=== PATIENT | female | born 2000 | race Caucasian/White ===

== ENCOUNTER 2025-03-22 10:04 | Inpatient (IN) | payer OTHER ==
[~2025-03-22] VITALS: Ht 180.3 cm; Wt 93.4 kg
[2025-03-22] MEDS ORDERED: Aluminum Hydroxide 320MG/5ML 473 ML PO PRN (15:00)
[2025-03-22] MEDS ORDERED: Ondansetron 4 MG SoluTab MM PRN (15:00)
[2025-03-22] MEDS ORDERED: LORazepam 2 MG/ML 1ML Injection IM PRN (15:00)
[2025-03-22] MEDS ORDERED: Polyethylene Glycol 3350 17 gm PO PRN (15:05)
[2025-03-22] MEDS ORDERED: DiphenhydrAMINE HCl 50 MG/ML 1ML Vial IM PRN (15:05)
[2025-03-22] MEDS ORDERED: FLU VACC TS2025-26(6MOS UP)/PF 45 MCG/0.5 ML SYRINGE IM SCH (15:10)
[2025-03-22] MEDS ORDERED: Haloperidol Lactate Inj. 5 MG/ML Injection IM PRN (15:10)
[2025-03-22 15:23] VITALS: BP 134/79
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
--- NOTE | 2025-03-22 16:23 | NUR ---
PROVIDER INFORMATION MIKE, THERAPIST AT [facility] IN [facility] [phone] PCP MAGDA PINZON IS AT [facility] [phone]
[2025-03-22 19:00] VITALS: BP 148/100
--- NOTE | 2025-03-23 04:38 | NUR ---
SHIFT SUMMARY 25 YEAR-OLD FEMALE PRESENTS WELL GROOMED. SHE IS ALERT AND ORIENTED. SHE SPEAKS IN A CLEAR VOICE AND IN AN APPROPRIATE VOLUME. SHE IS ABLE TO MAKE AND KEEP EYE CONTACT DURING CONVERSATIONS. AT THE TIME OF HER ASSESSMENT, SHE DESCRIBED HER MOOD "KIND OF IN THE MIDDLE". SHE ALSO DENIED SI, HI, AND AVTH AT THAT TIME. SHE ATTENDED SNACK AND DAY ROOM. SHE WAS COMPLIANT WITH CARE AND MEDICATION ADMINISTRATION. SHE RECEIVED THE FOLLOWING PRN MEDICATIONS: TRAZADONE 50MG AT 1952 FOR SLEEP. SHE CONTINUES TO BE MONITORED EVERY 15 MINUTES FOR WELLNESS AND SAFETY.
--- NOTE | 2025-03-23 04:39 | NUR ---
PRN NOTE PATIENT RECEIVED THE FOLLOWING PRN MEDICATIONS DURING COORDINATOR SKILL TRAINING PROGRAM: TRAZADONE 50MG AT 1952 FOR SLEEP.
[2025-03-23 07:53] LABS: CHOL/HDL RATIO 2.5; Cholesterol 135 mg/dL (50-200); HDL Cholesterol 54 mg/dL (>39); LDL/HDL RATIO 1.3; Low Density Lipoprotein Chol 68 mg/dL (0-110); Triglycerides 66 mg/dL (30-140); Very Low Density Lipoprot Chol 13 mg/dL (6-28)
[2025-03-23 07:54] VITALS: BP 119/82
[2025-03-23] MEDS ORDERED: Multivitamins 1 Tab PO SCH (09:00)
--- NOTE | 2025-03-23 10:04 | NUR ---
SHIFT ASSESSMENT PT IS ALERT AND ORIENTED, COOPERATIVE WITH CARE AND MED COMPLIANT. PRESENTS WITH GOOD OVERALL HYGIENE, JUST SHOWERED AND CLEAR FLUENT SPEECH. SHE DENIES SI/HI/AVH. STS SHE SLEEP WELL, HOWEVER HAS TO ENCOURAGE HER ROOM MATE TO LEAVE HER ALONE SHE TALKS ALL THE TIME. ROOM MATE HAS BEEN ASKED TO BE MINDFUL OF PT'S REQUEST TO ALLOW HER TO SLEEP. SHE IS ACTIVE IN THE MILIEU THIS MORNING, ATTENDING BKFT AND IS ACTIVE IN A GROUP SESSION AT THIS TIME. SHE WILL CONTINUE TO RECIEVE Q15 MIN VISUAL SAFETY CHECKS THIS SHIFT
--- NOTE | 2025-03-23 16:50 | NUR ---
SHIFT SUMMARY NO CHANGES OR UPDATES SINCE LAST ENTRY. PT DID REQUEST MIRALAX FOR CONSTIPATION AND IT WAS PROVIDED
[2025-03-23 19:14] VITALS: BP 137/93
--- NOTE | 2025-03-24 04:40 | NUR ---
SHIFT SUMMARY 25 YEAR-OLD FEMALE PRESENTS WELL GROOMED. SHE IS ALERT AND ORIENTED. SHE SPEAKS IN A CLEAR VOICE AND IN AN APPROPRIATE VOLUME. SHE IS ABLE TO MAKE AND KEEP EYE CONTACT DURING CONVERSATIONS. AT THE TIME OF HER ASSESSMENT, SHE DESCRIBED HER MOOD BEING UP AND DOWN ALL DAY. SHE ALSO DENIED SI, HI, AND AVTH AT THAT TIME. SHE ATTENDED SNACK AND DAY ROOM. SHE WAS COMPLIANT WITH CARE AND MEDICATION ADMINISTRATION. SHE RECEIVED THE FOLLOWING PRN MEDICATIONS: TRAZADONE 50MG AT 2038 FOR SLEEP. SHE CONTINUES TO BE MONITORED EVERY 15 MINUTES FOR WELLNESS AND SAFETY.
--- NOTE | 2025-03-24 04:41 | NUR ---
PRN NOTE PATIENT RECEIVED THE FOLLOWING PRN MEDICATIONS DURING HEAT TREATER: TRAZADONE 50MG AT 2038 FOR SLEEP.
--- NOTE | 2025-03-24 12:35 | NUR ---
SHIFT ASSESSMENT PT IS ALERT AND ORIENTED, COOPERATIVE, PRESENTS WITH DECENT APPEARANCE, IMPROVED EYE CONTACT OVER YESTERDAY IS NOTED, SPEECH CLEAR BUT VERY SOFT TONE. SHE CONTINUES TO ENDORSE EXTREME ANXIETY AND OF THIS TIME SHE HAS RECEIVED VISTARIL x1, SHE DENIES THOUGHTS OF SI. SHE HAS BEEN INVOLVED IN THE MILIEU ALL SHIFT AND CONTINUES TO RECEIVE Q15 MIN VISUAL SAFETY CHECKS.
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
[2025-03-24 19:27] VITALS: BP 133/98
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
--- NOTE | 2025-03-24 21:29 | NUR ---
PT HAD LONG CONVERSATION WITH MHA HALEY AFTER SNACK. SHE STATES CONVERSATION HELPED HER. THEN WALKS OUT INTO [place] AND STATES "I'M REALLY PARANOID NOW - I THINK EVERYONE IS TALKING ABOUT ME." DISCUSSION HELD ABOUT PARANOIA AND REALITY OF FEELINGS. MEDICATED WITH PM MEDS PER ORDER. PATIENT EXPRESSES SATISFACTION WITH MEDICATIONS.
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
--- NOTE | 2025-03-24 23:21 | NUR ---
pt resting in bed, no further needs expressed as of current.
--- NOTE | 2025-03-24 23:51 | NUR ---
DURING EARLIER ASSESSMENT PATIENT DENIED SI, A/V HALLUCINATIONS, OR ANY THOUGHTS OF HARM TO SELF OR OTHERS.
--- NOTE | 2025-03-25 04:06 | NUR ---
END OF SHIFT UPDATE ASSUMED CARE OF PT AT 2330. NO ACUTE CHANGES. PT HAS REMAINED IN BED THROUGHOUT THE NIGHT. Q15 MINUTE CHECKS TO CONTINUE PER PT SAFETY.
--- NOTE | 2025-03-25 17:35 | NUR ---
SHIFT SUMMARY PT AxOx4. PLEASANT AND COOPERATIVE WITH CARE. PT DENIED SI/HI AND AVTH THIS AM DURING ASSESSMENT. HOWEVER, SHE SEEMED WITHDRAWN, DISTRACTED, AND IN A BURNS DURING OUR INTERACTION. PT HAS BEEN FOLLOWING TREATMENT PROGRAM INCLUDING TAKING MEDS PRESCRIBED, ATTENDING MILIEU THERAPY GROUPS AND MINGLING APPROPRIATELY WITH PEERS/STAFF. PT HAS BEEN IN HER ROOM MOST DOWN TIMES/BETWEEN UNIT ACTIVITIES. SHE HAS MOSTLY BEEN NAPPING ON AND OFF. COURT DOCUMENTS SENT TO DC JEWELRY MANAGER TODAY SHOW THE PATIENT HAS BEEN PLACED ON 14 DAY DIVERSION COMMITMENT THROUGH [facility] COURTS. PROVIDER INCREASED DOSE OF ZYPREXA TO BE STARTED THIS EVENING. PT IS CURRENTLY SITTING IN DINING ROOM AWAITING DINNER. SHE DENIES ANY NEEDS AT THIS TIME.
[2025-03-25 20:27] VITALS: BP 125/82
--- NOTE | 2025-03-26 04:44 | NUR ---
SHIFT SUMMARY PATIENT RESTING IN HER ROOM, DENIES SI OR HI. DENIES VTH, VERBALIZED THAT SHE FEELS "LESS PARANOID" AUDITORY HALLUCINATIONS DESCRIBED THE SOUNDS OF THE UNIT INTRUDING INTO HER THOUGHTS. PATIENT ALSO VERBALIZED THAT SHE IS FEELING MORE PATIENT WITH TALKING TO OTHERS. COOPERATIVE WITH PO MEDICATIONS REQUESTING TRAZODONE FOR SLEEP AID. PATIENT APPEARS TO BE SLEEPING WELL T/O NIGHT RESP EVEN AND UNLABORED. CONTINUE TO MONITOR Q15MIN
[2025-03-26 07:51] VITALS: BP 125/78
--- NOTE | 2025-03-26 11:53 | NUR ---
SHIFT ASSESSMENT: PT IS ALERT AND COOPERATIVE WITH CARE. SHE DENIES SI AND HI. SHE APPEARS WELL GROOMED AND HAS APPROPRIATE EYE CONTACT. SHE ATTENDED BREAKFAST AND GROUPS. SHE HAS BEEN WAS ENGAGED WITH STAFF AND PEERS AND ACTIVE IN UNIT MILIEU.
--- NOTE | 2025-03-26 12:42 | NUR ---
DANIEL NOTE: PT HAS AN EARRING IN EACH EAR THAT ARE IN PLACE.
--- NOTE | 2025-03-26 17:05 | NUR ---
SHIFT SUMMARY: PT REMAINED COOPERATIVE THROUGHOUT SHIFT. SHE WAS PRESENT ON THE UNIT, ATTENDED GROUPS AND MEALS. SHE WAS ACTIVE IN THE MILIEU, SPENT TIME TALKING WITH STAFF AND PEERS AND WATCHING TV IN THE DAY ROOM. PT MONITORED WITH Q 15 MIN CHECKS FOR SAFETY PER UNIT PROTOCOL.
[2025-03-26 19:37] VITALS: BP 148/85
--- NOTE | 2025-03-27 04:50 | NUR ---
SHIFT SUMMARY PATIENT UP IN MILIEU WATCHING TV WITH PEERS. VERBALIZED THAT SHE FEELS LIKE HER EMOTIONS AND AUDITORY HALLUCINATIONS ARE FEWER AND MORE MANAGEABLE. DENIES SI OR HI. DENIES VTH. REQUESTING TRAZODONE FOR SLEEP AID. PATIENT SLEEPING WELL T/O NIGHT RESP EVEN AND UNLABORED. CONTINUE TO MONITOR Q15MIN
[2025-03-27 09:08] VITALS: BP 122/69
--- NOTE | 2025-03-27 10:29 | NUR ---
SHIFT ASSESSMENT: PT IS ALERT, ORIENTED AND COOPERATIVE WITH CARE. SHE APPEARS WELL GROOMED AND HAS SHOWERED THIS AM. SHE STATES THAT HER MOOD IS "OK, I'M CONFUSED WHY MY ROOMMATE IS UPSET". PT ATTENDED BREAKFAST AND AM GROUP. HER EYE CONTACT IS APPROPRIATE AND IS ENGAGED IN OUR CONVERSATION. SHE IS COMPLIANT WITH AM MEDS AND STATES THAT SHE SLEPT OK LAST NIGHT. ENCOURAGED PT TO LET STAFF KNOW IF SHE HAS ANY NEEDS OR CONCERNS. PT MONITORED WITH Q 15 MIN CHECKS FOR SAFETY PER UNIT PROTOCOL.
--- NOTE | 2025-03-27 17:18 | NUR ---
SHIFT SUMMARY: PT REMAINED COOPERATIVE WITH CARE THROUGHOUT THE SHIFT. COMPLIANT WITH MEDICATIONS AND SHOWERED TODAY. SHE WAS PRESENT FOR MEALS AND ATTENDED GROUPS. SHE SPENT TIME RESTING IN HER ROOM AND IN THE SENSORY ROOM VISITING WITH PEERS. NO ACUTE CHANGES FROM PREVIOUS NOTE. PT MONITORED WITH Q 15 MIN CHECKS FOR SAFETY PER UNIT PROTOCOL.
[2025-03-27 19:10] VITALS: BP 142/83
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
[2025-03-28 08:52] VITALS: BP 124/78
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
[2025-03-28 19:47] VITALS: BP 130/81
--- NOTE | 2025-03-29 05:33 | NUR ---
SHIFT SUMMARY Pt is A&O, calm, cooperative, polite, appropriately dressed, eye contact is appropriate. Pt stated that her mood is "fine," affect is constricted. Pt denies SI, HI, and hallucinations. Pt denies current pain. Pt stated that she experienced zero hallucinations today and that she was ready to wind down and wanted her medications at about 2000. Pt showered this evening and pleasantly interacted with peers and staff. TV with peers and staff. She requested PRN trazodone for sleep with her HS meds. Staff continues to monitor q15m for safety and wellness.
[2025-03-29 09:03] VITALS: BP 131/77
--- NOTE | 2025-03-29 18:47 | NUR ---
Patient was awake for medications and breakfast this morning. Her speech was clear. The patient is feeling better. She states that she is able to differentiate between background conversations and voices in her head now. She reports that she isn t having any hallucinations at this time. She says that she slept well last night and that her appetite is good. The patient appears disheveled as she is lying in her bed. The conversation sounds logical as she can clearly explain to me how she is feeling and appears to understand questions fully. She denies having any thoughts of suicide, self harm or homicide.
[2025-03-29 19:04] VITALS: BP 124/79
--- NOTE | 2025-03-30 05:40 | NUR ---
SHIFT SUMMARY Pt is A&O, calm, cooperative, polite, appropriately dressed, eye contact is appropriate. Pt stated that her mood is "better," affect is euthymic. Pt denies SI, HI, and hallucinations. Pt denies current pain. Pt stated that she is thinking a lot more clearly and feels that she has been "psychotic for months." Pt states that new she is able to keep herself "level" when intrusive thoughts start and thinks that she is back to baseline. Pt spent the evening watching TV with peers. She requested PRN trazodone for sleep with her HS meds. Staff continues to monitor q15m for safety and wellness.
[2025-03-30 09:01] VITALS: BP 136/80
--- NOTE | 2025-03-30 16:57 | NUR ---
SHIFT SUMMARY PT DENIES SI, HI, AVTH. ENDORSES FEELING "CLEAR" AND "HAPPY" HAS STAYED IN ROOM FOR MOST OF DAY EXCEPT FOR MEALS. NO OTHER ACUTE EVENTS TODAY.
[2025-03-30 19:21] VITALS: BP 142/92
--- NOTE | 2025-03-31 05:40 | NUR ---
SHIFT SUMMARY Pt is A&O, calm, cooperative, polite, appropriately dressed, eye contact is appropriate. Pt stated that her mood is "pretty good," affect is euthymic. Pt denies SI, HI, and hallucinations. Pt denies current pain. Pt continues her clear thinking and is not having any type of intrusive thoughts. Pt stated that there will be a meeting tomorrow to determine if her diversion can be discontinued early. Pt spent the evening watching TV with peers. She requested PRN trazodone and retired to her room after receiving her HS meds. Staff continues to monitor q15m for safety and wellness.
[2025-03-31 09:10] VITALS: BP 133/83
--- NOTE | 2025-03-31 17:03 | NUR ---
SHIFT SUMMARY: PT IS ALERT, ORIENTED AND COOPERATIVE WITH CARE. SHE APPEARS WELL GROOMED AND HAS APPROPRIATE EYE CONTACT. SHE DENIES SI, HI AND AVH. SHE IS ENGAGED DURING CONVERSATIONS AND STATES THAT HER MOOD IS "GOOD". SHE DENIES SI AND HI. REPORTS AUDITORY HALLUCINATIONS, "JUST BACKGROUND NOISE". STATES THAT SHE IS HAPPY WITH HER MEDICATION SCHEDULE NOW AND IS LOOKING FORWARD TO NOT BEING SLEEPY DURING THE DAY TODAY. SHE ATTENDED MEALS AND GROUPS. SHE WAS PRESENT ON THE UNIT AND ACTIVE IN THE MILIEU. TALKING WITH STAFF AND PEERS. PT MONITORED WITH Q 15 MIN CHECKS FOR SAFETY PER UNIT PROTOCOL.
[2025-03-31 19:05] VITALS: BP 131/91
--- NOTE | 2025-03-31 21:51 | NUR ---
MID-SHIFT SUMMARY Pt is A&O, calm, cooperative, polite, appropriately dressed, eye contact is appropriate. Pt stated that her mood is "great," affect is euthymic. Pt denies SI, HI, and hallucinations. Pt endorsed bilateral foot pain 5/10w and requested PRN APAP with HS medications. Pt is very happy now that she is getting her full dose of olanzapine HS instead of split AM and HS. She stated that she had no need for a nap today and did not request PRN trazodone for sleep tonight. Pt and typewriter tester discussed follow up care at home. Pt wants to make sure that she will continue the meds that were started during this admission. Pt was active on the milieu, watching TV with peers and staff. Staff continues to monitor q15m for safety and wellness.
--- NOTE | 2025-04-01 05:02 | NUR ---
SHIFT SUMMARY Assumed care at 2200. Patient with even chest rise and fall, has slept since approximently 2100. No further c/o foot pain. Will continue close observation per unit protocol every 15 minute safety checks.
[2025-04-01 08:49] VITALS: BP 126/80
--- NOTE | 2025-04-01 17:10 | NUR ---
SHIFT SUMMARY PT AxOx4. PLEASANT AND COOPERATIVE WITH CARE. PT REPORTS MOOD "FRUSTRATED" THIS AM. PT WENT ON TO EXPLAIN HER MOOD WAS DUE TO "GETTING THE RUN AROUND ABOUT DISCHARGING" AND THAT "IF IT'S UP TO THE COUNTY, THEY WILL JUST CONTINUE TO DRAG THEIR FEET." PT WAS RESPECTFUL AND CALM WHILE DISCUSSING THIS CONCERN. RELAYED INFO TO DC CLIENT RESOLUTION SPECIALIST, WHO AGREED TO REACH OUT TO [facility] TO GET PATIENT'S DC PLANS GOING SOONER RATHER THAN LATER. PT DID EXPRESS GRATEFULNESS TO STAFF FOR MAKING THE EFFORT. OTHERWISE, SHE HAS BEEN FOLLOWING HER TREATMENT PROGRAM INCLUDING TAKING HER MEDS PRESCRIBED, ATTENDING MILIEU THERAPY GROUPS AND MINGLING APPROPRIATLY WITH PEERS/STAFF. SHE IS CURRENTLY RESTING IN HER ROOM. DENIED ANY NEEDS AT THIS TIME.
[2025-04-01 19:15] VITALS: BP 136/81
--- NOTE | 2025-04-01 22:51 | NUR ---
MID SHIFT SUMMARY Patient is alert and oriented times four. She participated in the activities of the milieu and was conversant with both staff and her peers. She denies SI,HI and AVTH during the evening assessment. She stated she did not sleep as well as she had been last night, and requested to receive a Trazodone at bedtime with her zyprexa. This was given and the patient went to bed shortly after. Told patient to come get nursing staff or let us know on rounds if she is ever having sleep difficulties as we could have given her something the previous night. Will continue close monitoring every 15 minutes per unit protocol for comfort and patient safety.
--- NOTE | 2025-04-02 05:00 | NUR ---
SHIFT SUMMARY No changes since mid shift report. Patient continues to sleep comfortably with even chest rise and fall. Will continue close monitoring every 15 minutes for safety and patient comfort.
[2025-04-02 08:03] VITALS: BP 126/80
--- NOTE | 2025-04-02 17:18 | NUR ---
SHIFT SUMMARY NO ACUTE EVENTS TODAY. DENIES SI, HI, AVTH. STATES SHE IS READY TO LEAVE. PT DID EXPRESS SOME FRUSTRATION ABOUT INCONSISTENCIES W/ DISCHARGE INFORMATION SHE HAS RECIEVED, BUT CLARIFIED PLAN W/ PT TODAY AFTER TREATMENT TEAM. HAS ATTENDED MEALS, GROUPS, AND BEEN IN DAYROOM. INTERACTING W/ PEERS AND STAFF.
[2025-04-02 19:56] VITALS: BP 144/83
--- NOTE | 2025-04-03 04:19 | NUR ---
Patient is alert and oriented times four. She spent the evening in the day room watching a movie with her peers. She denied SI,HI and AVTH during evening assessment, and was in bed shortly after snack time. Will continue close monitoring every 15 minutes for safety and comfort.
[2025-04-03 08:54] VITALS: BP 133/73
[2025-04-03] MEDS ORDERED: Glycerin Adult Supp 1 EA PR ONE (17:00)
--- NOTE | 2025-04-03 17:33 | NUR ---
SHIFT SUMMARY PT WAS CALM AND EUTHYMIC THIS SHIFT. SHE WAS COOPERATIVE WITH MEDICATIONS. SHE C/O NOT HAVING A BM X2-3 DAYS AND FEELING CONSTIPATED. SHE WAS GIVEN PRN MIRALAX IN THE AFTERNOON. SHE DENIES RELIEF AT THE END OF THE SHIFT AND A SUPPOSITORY WAS ORDERED. PT DENIES SI/HI/AVTH. SHE PARTICIPATED IN THE MILIEU AND GROUPS. PT HAD NO ACUTE BEHAVIORS TO REPORT THIS SHIFT.
[2025-04-03 19:20] VITALS: BP 132/92
--- NOTE | 2025-04-04 04:33 | NUR ---
SHIFT SUMMARY: PT A/O X4. DENIES SI, HI, AND AVH. DENIES TO HAVE HALLUCINATIONS AT THIS TIME. UP IN THE GROUP ROOM AT THE BEGINNING OF THE SHIFT. WENT INTO GROUP AND SNACK TIME. PT STATES THAT THE SUPPOSITORY HAS NOT YET WORKED AND WOULD LET ME KNOW WHEN IT DOES. FEELS SOME UNCOMFORTABLILITY BUT NOT BAD. PT REQUESTED TRAZODONE FOR SLEEP. AFTER MED TIME AND SNACK TIME PT WENT TO BED FOR THE NIGHT. HAS BEEN SLEEPING SINCE. WILL CONTINUE TO MONITOR Q 15 MINS PER SAFETY AND WELLNESS
[2025-04-04 08:47] VITALS: BP 121/69
[2025-04-04] MEDS ORDERED: Magnesium Hydroxide Conc 10 ML UDC PO PRN (09:55)
--- NOTE | 2025-04-04 11:29 | NUR ---
SHIFT SUMMARY PT DENIES SI/HI/AVTH. SHE IS EUTHYMIC AND C/O BEING TIRED. SHE ALSO C/O NO BM REGARDLESS OF THE MIRALAX AND SUPPOSITORY YESTERDAY. A NEW ORDER FOR MILK OF MAG WAS PLACED AND ADMINISTERED BY KATARINA PINEDA. PT IS COOPERATIVE WITH MEDS AND JOINING GROUPS. SHE IS ACTIVE IN THE MILIEU AND INTERACTING WITH STAF AND PEER WELL. REPORT GIVEN TO KATARINA PINEDA.
--- NOTE | 2025-04-04 16:29 | NUR ---
Assumed care of this patient after noon. She was given M.O.M this morning and has been walking the hallway, drinking water in an attempt to assist the medications.The M.O.M was effective last this afternoon. She has been appropriate on the unit, participating in groups and interacting with peers in a friendly fashion. She has not had any concerns about SI, hallucination or other mental health symptoms. Please also see previous nursing note.
[2025-04-04 19:35] VITALS: BP 140/80
--- NOTE | 2025-04-05 04:38 | NUR ---
SHIFT SUMMARY:PT A/O X4. PLEASANT AND COOPERATIVE. PT HAD A BM TODAY AND FEELS BETTER. DENIES SI, HI AND AVH. UP AND PARTICIPATED IN GROUP AND SNACK TIME. PT REQUESTED TRAZODONE FOR SLEEP. SPEECH CLEAR. CONTACT WITH OTHERS INTERACTING WELL. PT STATED SHE IS FEELING BETTER AND THINKS SHE CAN GO HOME SOON. MED COMPLIANT. ROOMMATE AND HER LAUGHING A LOT WHEN TOGETHER. UP AND IN TV ROOM AFTER SNACK UNTIL BED TIME. WILL CONTINUE TO MONITOR Q 15 MIN FOR SAFETY AND WELLNESS.
[2025-04-05 08:49] VITALS: BP 126/76
--- NOTE | 2025-04-05 13:12 | NUR ---
ASSUMED PT CARE @0700. SHE IS PLEASNT AND COOPERATIVE WITH CARE. SPEECH AND EYE CONTACT IS APPROPRIATE. REPORTS MOOD GOOD, AFFECT IS EUTHYMIC. PT IS COMPLIANT WITH MEDICATIONS. SHE STATES SHE FEELS LIKE THEY ARE WORKING. SHE DENIES ADVERSE EFFECTS. SHE HAS BEEN UP FOR SHOWER, MEALS AND GROUP. SHE IS COMING OUT OF HER ROOM NO SPENDING TIME IN THE DAY AREA. SHE IS INTERACTING WELL WITH STAFF AND PEERS. SHE REPORTS THAT SHE HAD A BOWEL MOVEMENT BUT STILL FEELS CONSTIPATED. PHARMACY TO BRING OVER MILK OF MAG. SHE HAS NO OTHER CONCERNS AT THIS TIME. SHE IS MOTIVATED AND EXCITED ABOUT UPCOMING DC. WILL CONTINUE POC
--- NOTE | 2025-04-05 17:57 | NUR ---
SHIFT SUMMARY NO CLINICAL CHANGES FROM ASSUMPTION OF CARE NOTE. EBEN HAS SPENT TIME IN HER ROOM, IN DAY AREA AND GROUPS. SHE RECIEVED MILK OF MAG FOR CONSTIPATION. WILL CONTINUE POC
[2025-04-05 20:45] VITALS: BP 132/87
--- NOTE | 2025-04-06 04:26 | NUR ---
PRN NOTE PATIENT RECEIVED THE FOLLOWING PRN MEDICATIONS DURING AIRSET MOLDER: TRAZADONE 50MG FOR SLEEP AT 2027.
--- NOTE | 2025-04-06 04:26 | NUR ---
SHIFT SUMMARY 25 YEAR-OLD FEMALE PRESENTS WELL GROOMED. SHE IS ALERT AND ORIENTED. SHE SPEAKS IN A CLEAR VOICE AND IN AN APPROPRIATE VOLUME. SHE IS ABLE TO MAKE AND KEEP EYE CONTACT DURING CONVERSATIONS. AT THE TIME OF HER ASSESSMENT, SHE DESCRIBED HER MOOD HAPPY AND EXCITED TO BE DISCHARGING TO MONDAY. SHE ALSO DENIED SI, HI, AND AVTH AT THAT TIME. SHE ATTENDED SNACK AND DAY ROOM. SHE WAS COMPLIANT WITH CARE AND MEDICATION ADMINISTRATION. SHE RECEIVED THE FOLLOWING PRN MEDICATIONS: TRAZADONE 50MG FOR SLEEP AT 2027. SHE CONTINUES TO BE MONITORED EVERY 15 MINUTES FOR WELLNESS AND SAFETY.
[2025-04-06 08:50] VITALS: BP 119/75
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
[2025-04-06 21:08] VITALS: BP 132/76
--- NOTE | 2025-04-07 04:52 | NUR ---
SHIFT SUMMARY 25 YEAR-OLD FEMALE PRESENTS WELL GROOMED. SHE IS ALERT AND ORIENTED. SHE SPEAKS IN A CLEAR VOICE AND IN AN APPROPRIATE VOLUME. SHE IS ABLE TO MAKE AND KEEP EYE CONTACT DURING CONVERSATIONS. AT THE TIME OF HER ASSESSMENT, SHE DESCRIBED HER MOOD GOOD. SHE ALSO DENIED SI, HI, AND AVTH AT THAT TIME. SHE ATTENDED SNACK, BUT OPTED TO GO TO HER ROOM INSTEAD OF ATTENDING DAY ROOM. SHE WAS COMPLIANT WITH CARE AND MEDICATION ADMINISTRATION. SHE RECEIVED THE FOLLOWING PRN MEDICATIONS: TRAZADONE 50MG FOR SLEEP AT 2004. SHE CONTINUES TO BE MONITORED EVERY 15 MINUTES FOR WELLNESS AND SAFETY.
--- NOTE | 2025-04-07 04:53 | NUR ---
PRN NOTE PATIENT RECEIVED THE FOLLOWING PRN MEDICATIONS DURING WOOD ENGRAVER: TRAZADONE 50MG FOR SLEEP AT 2004.
[2025-04-07 08:55] VITALS: BP 129/81
--- NOTE | 2025-04-07 16:24 | NUR ---
IMPORTANT DISCHARGE INFORMATION EBEN WILL BE DISCHARGING 04/08/25 AT 9AM. [facility] TRANSPORT IS COMING TO DRIVE HER BACK TO HER HOME IN [place]. THEIR NUMBER IS: . ALL PARTIES VERBALIZE AN UNDERSTANDING. EBEN WANTS TO BE WOKEN UP AROUND 7AM TO SHOWER AND PREPARE FOR DISCHARGE. FOLLOW UP APPOINTMENTS: FOLLOW UP WITH [facility] ([facility]) ON: Monday04/08/25 AT 1PM IF TRANSPORT ARRIVES ON TIME. PSYCH ASSESSMENT ON 04/14/25 AT 10AM WITH [facility] APPOINTMENT ON 05/02/25 AT 9AM WITH [facility] IN [place] FAX NUMBER =
--- NOTE | 2025-04-07 17:37 | NUR ---
SHIFT SUMMARY PT WOKE EASILY FOR BREAKFAST THIS SHIFT AND STATED SHE HAD A GREAT NIGHTS SLEEP. SHE IS ALERT AND ORIENTED WITH GOOD EYE CONTACT AND CLEAR SPEECH WITH NORMAL TONE, PRESENTABLE HYGIENE AND HAS BEEN COOPERATIVE IN CARE. PT HAS BEEN MORE ENGAGED IN THE [place] TODAY AND PARTICIPATING IN GROUPS AND TV ROOM. PT HAS DENIED SI/HI/AVH AND STATED EXCITEMENT TO BE GOING HOME TOMORROW. SHE HAS RECEIVED Q15 MIN VISUAL SAFETY CHECKS THROUGHOUT THIS SHIFT
[2025-04-07 19:36] VITALS: BP 133/92
--- NOTE | 2025-04-07 20:15 | NUR ---
PATIENT REQUESTED AND WAS GIVEN TRAZODONE FOR INSOMNIA. SHE STATED SHE IS EXCITED ABOUT LEAVING AND WANTS TO BE ABLE TO GET A GOOD SLEEP. CONTINUING TO MONITOR FOR SAFETY AND FOR EFFECTIVENESS.
--- NOTE | 2025-04-08 03:25 | NUR ---
SECOND TRAZODONE: PATIENT REQUESTED AND WAS GIVEN A SECOND TRAZODONE 04/07/25 AT 2117, FOR INSOMNIA. THE MEDICATION WAS EFFECTIVE UPON REASSESSMENT, PATIENT WAS IN BED QUIETLY RESTING WITH EYES CLOSED AND RESPIRATIONS CONFIRMED.
--- NOTE | 2025-04-08 04:13 | NUR ---
PATIENT IS A 25 YEAR OLD FEMALE WHO WAS ADMITTED TO THE [facility] ON 03/22/25 FOR PSYCHOSIS. SHE PRESENTS WELL GROOMED, AND IS A AND O X4. SHE SPEAKS IN A MODERATE VOICE AND IS ABLE TO MAKE NEEDS KNOWN. SHE MAKES APPROPRIATE EYE CONTACT. SHE DESCRIBES HER MOOD "MOSTLY GOOD, BUT SOMEONE ELSE ISN'T BEING NICE RIGHT NOW, SO I'LL ADMIT I'M KIND OF MAD." SHE IS ABLE TO DISCUSS HER FEELINGS AND ENDS UP CHUCKLING AT THE SITUATION. SHE STATES, "I AM SO HAPPY THAT I'M LEAVING TOMORROW. I'M NERVOUS, BUT EXCITED". EDUCATION WAS GIVEN REGARDING EVENING MEDICATIONS, INCLUDING TRAZODONE 50 MG PO PRN INSOMNIA WHICH WAS REQUESTED AND GIVEN AT 2010 AND AGAIN AT 2116. THE FIRST DOSE WAS NOT EFFECTIVE, BUT THE SECOND DOSE WAS, EVIDENCED BY PATIENT THEN RESTING QUIETLY WITH EYES CLOSED AND RESPIRATIONS CONFIRMED UPON RE-ASSESSMENT. PATIENT SPENT TIME IN THE DAY ROOM WATCHING TV, AND PARTICIPATED IN SNACK AND WRAP UP GROUP IN THE DINING AREA AT 1999. SHE WAS COMPLIANT WITH EVENING MEDICATIONS. CONTINUING TO MONITOR FOR SAFETY WITH Q15 MINUTE CHECKS.
[2025-04-08 08:45] VITALS: BP 138/84
[2025-04-08] MEDS ORDERED: OLAN10A PO (08:50)
--- NOTE | 2025-04-08 09:10 | NUR ---
DISCHARGE SUMMARY PT PROVIDED WITH PRINTED D/C INSTRUCTION PACK. THIS RN EXPLAINED THE PACKET AND F/U MEDS AND APPOINTMENTS. PT STATES UNDERSTANDING AND SIGNED THE ACKNOWLEDGEMENT FORM. SHE WAS GIVEN HER BELONGINGS TOTE THAT ALSO HAD A HER CELL PHONE INSIDE OF IT. SHE WAS ALSO GIVEN SOME DONATED SHOES SINCE HER OWN HAD MOLDED INSIDE THE TOTE. PT AMBULATED OUT OF THE [facility] TO DIRECT MEDICAL TRANSPORTATION THAT WILL BE DRIVING HER BACK TO [facility] PRESCRIPTIONS WERE FAXED TO [facility] IN [facility].
== END 2025-04-08 09:10 | disposition home or self-care (01) | DRG 885 ==
LOC: BHU 10:04
PROVIDERS: ADMIT Psychiatry & Neurology Psychiatry
DX: F30.2 Manic episode, severe with psychotic symptoms (principal); R45.851 Suicidal ideations; F12.90 Cannabis use, unspecified, uncomplicated; F41.9 Anxiety disorder, unspecified; Z91.51 Personal history of suicidal behavior; Z88.8 Allergy status to other drugs, medicaments and biological substances; Z79.899 Other long term (current) drug therapy; Z79.1 Long term (current) use of non-steroidal anti-inflammatories (NSAID)
CPT/HCPCS: 36415; 80061; 83036; A9270